=== PATIENT | female | born 1960 ===

== ENCOUNTER 2025-01-30 20:17 | Inpatient (IN) | payer MEDICARE, MEDICAID ==
[~2025-01-30] VITALS: Ht 162.6 cm; Wt 70.0 kg
[2025-01-30 21:29] LABS: PLATELET COUNT (AUTO) 160 K/uL (150-450); RED BLOOD CELL COUNT(AUTO) 3.92 MIL/uL (4.00-5.20); RED CELL DISTRIBUTION WIDTH 14.7 % (11.5-14.5); WHITE BLOOD COUNT (AUTO) 5.5 K/uL (4.5-11.0)
[2025-01-30 21:31] LABS: CALCIUM, TOTAL 8.4 mg/dL (8.8-10.5); CREATININE 0.79 mg/dL (0.60-1.30); GLOMERULAR FILTR. RATE CALC > 60 mL/min (>60); GLUCOSE,RANDOM 103 mg/dL (70-110); SODIUM SERUM 137 mmol/L (136-145); UREA NITROGEN, BLOOD 17 mg/dL (7-18)
[2025-01-30 21:35] LABS: ASPARTATE AMINOTRANSFERASE 17 U/L (15-37); TOTAL PROTEIN, SERUM 6.2 g/dL (6.4-8.2)
[2025-01-30 21:42] LABS: ALCOHOL, BLOOD (SERUM) < 3 mg/dL (0-10)
[2025-01-30 22:13] LABS: RBC MORPHOLOGY COMMENT ABNORMAL RBC MORPH
[2025-01-30 23:46] LABS: COVID AG,FIA SOURCE NASAL SWAB
[2025-01-30 23:50] LABS: SARS-COV2 (COVID) ANTIGEN,FIA Negative (Negative)
[2025-01-31] MEDS ORDERED: ZOLPIDEM TARTRATE 10 MG TABLET PO PRN (01:15)
[2025-01-31 03:45] VITALS: BP 118/82; PULSE 52; RESP 16; TEMP 97.3; O2SAT 97
[2025-01-31 08:47] VITALS: BP 110/66; PULSE 57; RESP 18; TEMP 98.2; O2SAT 96
[2025-01-31] MEDS ORDERED: OMEPRAZOLE 20 MG CAPSULE PO PRN (09:00)
[2025-01-31] MEDS ORDERED: ONDANSETRON 4 MG TABLET PO PRN (09:00)
[2025-01-31] MEDS ORDERED: MAGNESIUM HYDROXIDE SUSPENSION 30 ML UDCUP PO PRN ×2 (09:00→15:00)
[2025-01-31] MEDS ORDERED: PETROLATUM,WHITE 28 GM JELLY TP PRN (09:00)
[2025-01-31] MEDS ORDERED: ACETAMINOPHEN 325 MG TABLET PO PRN ×2 (09:00→15:00)
[2025-01-31] MEDS ORDERED: DOCUSATE SODIUM 100 MG CAPSULE PO PRN (09:00)
[2025-01-31] MEDS ORDERED: BENZOCAINE/MENTHOL [CEPACOL] LOZENGE PO PRN (09:00)
[2025-01-31] MEDS ORDERED: IBUPROFEN 600 MG TABLET PO PRN (09:00)
[2025-01-31] MEDS ORDERED: MAG HYDROX/ALUMINUM HYD/SIMETH ES 30 ML SUSPENSION UDCUP PO PRN ×2 (09:00→15:00)
[2025-01-31] MEDS ORDERED: LOPERAMIDE HCL 2 MG CAPSULE PO PRN ×2 (09:00→15:00)
[2025-01-31] MEDS ORDERED: ALBUTEROL SULFATE HFA 90 MCG/PUFF 8 GM INHALER IH PRN (09:00)
[2025-01-31] MEDS ORDERED: BACITRACIN 28 GM OINTMENT TP PRN (09:00)
[2025-01-31 09:03] VITALS: BP 110/66; PULSE 57; RESP 18; TEMP 98.2; O2SAT 96
[2025-01-31] MEDS ORDERED: TUBERCULIN, PURIFIED PROTEIN DERIVATIVE 5 TU/0.1 ML SYRINGE ID ONE (15:00)
[2025-01-31] MEDS ORDERED: OLANZapine 5 MG RAPDIS TABLET PO PRN (15:00)
[2025-01-31] MEDS ORDERED: GuaiFENesin/D-METHORPHAN [SUGAR-FREE] 200-20MG/10 ML SYRUP UDCUP PO PRN (15:00)
[2025-01-31] MEDS ORDERED: PROMETHAZINE HCL 25 MG TABLET PO PRN (15:00)
[2025-01-31] MEDS: THIAMINE 100 MG TABLET PO SCH (17:09)
[2025-01-31] MEDS: DIVALPROEX SODIUM 500 MG ER TABLET PO SCH (17:10)
[2025-01-31] MEDS: MELATONIN 5 MG TABLET PO SCH (20:49)
[2025-01-31] MEDS: OLANZapine 5 MG RAPDIS TABLET PO SCH (20:49)
[2025-01-31 21:35] VITALS: BP 111/67; PULSE 82; RESP 18; TEMP 98.1; TEMP 98.2; O2SAT 95
[2025-02-01 09:59] VITALS: BP 100/73; PULSE 94; RESP 17; TEMP 98.3; O2SAT 97
[2025-02-01] MEDS: FOLIC ACID 1 MG TABLET PO SCH (10:37)
[2025-02-01] MEDS: MULTIVITAMINS WITH MINERALS, THERAPEUTIC TABLET PO SCH (10:37)
[2025-02-01 14:12] LABS: CHOL/HDL RATIO 4.4 (3.9-5.7); LDL CHOL (CALC.) 77.0 mg/dL (0-130)
[2025-02-01] MEDS ORDERED: PALIPERIDONE PALMITATE 156 MG/ML SYRINGE IM ONE (18:45)
[2025-02-01 21:33] VITALS: BP 130/98; PULSE 89; RESP 18; TEMP 97.4; O2SAT 96
[2025-02-02] MEDS: LEVOTHYROXINE SODIUM 88 MCG TABLET PO SCH (06:18)
[2025-02-02] MEDS: CHOLECALCIFEROL (VIT D3) 1,000 UNITS [25 MCG] TABLET PO SCH (08:26)
[2025-02-02 08:50] VITALS: BP 132/98; PULSE 72; RESP 16; TEMP 97.7; O2SAT 96
[2025-02-02] MEDS ORDERED: PALI117D IM (11:57)
[2025-02-02] MEDS ORDERED: MELA5TAB40 PO (11:57)
[2025-02-02] MEDS ORDERED: OLAN5TAB94 PO (11:57)
[2025-02-02] MEDS ORDERED: DIVA-153 PO (11:57)
[2025-03-01] MEDS ORDERED: PALIPERIDONE PALMITATE 117 MG/0.75 ML SYRINGE IM SCH (09:00)
== END 2025-02-02 14:40 | DRG 884 ==
LOC: EMS 20:17 → 3EX 01-31 02:22
PROVIDERS: ADMIT Psychiatry & Neurology Psychiatry; ATTEND Psychiatry & Neurology Psychiatry
PROC: GZHZZZZ Group Psychotherapy (ICD-10-PCS; principal; 2025-01-31)
PROC: GZ58ZZZ Individual Psychotherapy, Cognitive-Behavioral (ICD-10-PCS; 2025-01-31)
PROC: GZ56ZZZ Individual Psychotherapy, Supportive (ICD-10-PCS; 2025-02-01)
DX: F09 Unspecified mental disorder due to known physiological condition (principal); E03.9 Hypothyroidism, unspecified; Z20.822 Contact with and (suspected) exposure to COVID-19; G47.00 Insomnia, unspecified; F25.9 Schizoaffective disorder, unspecified; K59.00 Constipation, unspecified; F41.9 Anxiety disorder, unspecified; Z88.0 Allergy status to penicillin; M19.90 Unspecified osteoarthritis, unspecified site
CPT/HCPCS: 80048; 80061; 80076; 80164; 83036; 84439; 84443; 85025; 86592; 87081; 99285; G0378; G0480